=== PATIENT | female | born 1940 | race Caucasian/White ===

== ENCOUNTER → 2017-05-06 | Outpatient (CLI) | payer MEDICARE, OTHER ==
--- NOTE | 2017-05-06 16:07 | Diagnostic Imaging Report ---
INDICATION: Osteoporosis. Assess bone mineralization. COMPARISON: 05/28/2009. FINDINGS: Bone mineralization of the lumbar spine is 1.154. T-score is -0.4. Previously this was 1.083 and is improved by 6.6%. Left hip was measured at 1.141, the right hip 1.121. Previously bone mineralization was 1.051. This is improved by 7.6%. IMPRESSION: Normal DEXA scan. No osteoporosis or osteopenia detected. Dictated by: Dictated on workstation # [id number]
== END ==
LOC: RAD 10:45
PROVIDERS: ATTEND Internal Medicine
DX: M81.0 Age-related osteoporosis without current pathological fracture (principal)
CPT/HCPCS: 77080

== ENCOUNTER → 2017-11-05 | Outpatient (CLI) | payer MEDICARE, OTHER ==
[~2017-11-05] VITALS: Ht 165.1 cm; Wt 91.6 kg
[~2017-11-05] MED LIST: REGADENOSON 0.4 MG/5 ML SYR (LEXISCAN) IV ONE
[2017-11-05] MEDS: CATHETER FLUSH 10 ML SYR IV PRN ×2 (07:01→08:06)
[2017-11-05 08:05] VITALS: BP 171/78
--- NOTE | 2017-11-05 10:47 | Diagnostic Imaging Report ---
Clinical indication: Patient has dyspnea on exertion. Patient says it is worse when working outside. Exam: Chest x-ray and PA lateral views. Comparison: None. Findings: Lungs are clear. There is no pleural effusion or pneumothorax. Pulmonary vasculature and cardiac silhouettes within normal limits. There is slight elevation of the right hemidiaphragm. There are degenerative spurs seen throughout the thoracic spine. Surgical clips are seen overlying the right upper quadrant which could be related to cholecystectomy changes. Impression: 1: There is no radiographic evidence of acute cardiopulmonary process. 2: There is nonspecific mild elevation of the right hemidiaphragm. Dictated by: Dictated on workstation # [id number]
[2017-11-05 12:41] VITALS: BP 157/81
--- NOTE | 2017-11-05 12:41 | Cardiology Stress Test Report ---
Stress Test Report Type of NM Stress Test: Test Type: LEXISCAN 0.4MG/5ML Date of Procedure/Referring: Date of Procedure: Nov 05, 2017 PCP Rodo Finch DO Admitting Physician Rodo Finch DO Indications: Dyspnea, hypertension Baseline Heart Rate: 86 Baseline Blood Pressure: Blood Pressure Systolic: 157 Blood Pressure Diastolic: 81 Baseline EKG: Baseline EKG: sinus rhythm Summary & Conclusion: Summary: Please see Dr. Finch's note for the stress testing. 10.71 mCi of Myoview were given for rest imaging and 30.6 mCi of Myoview given for stress imaging. Transient ischemic dilatation score 1.04 , EF 71 percent. Normal wall motion. Normal myocardial perfusion imaging during rest and stress. Conclusion: Normal LV function with no wall motion abnormalities. Normal myocardial perfusion imaging during rest and stress. Copy Copies To 1: RODO FINCH M RIZWAN MD Nov 05, 2017 12:41
== END ==
LOC: CARD 06:34
PROVIDERS: ATTEND Internal Medicine
DX: I10 Essential (primary) hypertension (principal); R06.00 Dyspnea, unspecified
CPT/HCPCS: 71046; 78452; 93017

== ENCOUNTER → 2017-11-11 | Outpatient (CLI) | payer MEDICARE, OTHER | LOC: CARD 14:22 | PROVIDERS: ATTEND Internal Medicine | DX: R00.2 Palpitations (principal) | CPT/HCPCS: 93225; 93226 ==

== ENCOUNTER → 2019-03-15 | Outpatient (CLI) | payer MEDICARE, OTHER ==
[~2019-03-15] MED LIST changes: +HOLD METFORMIN - RECEIVED CONTRAST 20 ML VIAL IV SCH; +IOHEXOL 350 MG/ML 100 ML (OMNIPAQUE 350) VIAL IV ONE; +NS 100 ML (IVPB) BAG IV ONE; -REGADENOSON 0.4 MG/5 ML SYR (LEXISCAN) IV ONE
[2019-03-15 10:36] LABS: CREATININE SERUM 0.96 MG/DL (0.60-1.30)
--- NOTE | 2019-03-15 11:45 | Diagnostic Imaging Report ---
PROCEDURE: CT abdomen and pelvis with and without contrast. TECHNIQUE: Precontrast acquisitions were acquired through the abdomen and pelvis. Multiple contiguous axial images were obtained through the abdomen and pelvis after the administration of intravenous contrast. Auto Exposure Controls were utilized during the CT exam to meet ALARA standards for radiation dose reduction. INDICATION: Microhematuria. COMPARISON: Correlation is made with prior CT from 02/14/2016. FINDINGS: The lung bases are clear. Liver contains tiny low densities, too small to characterize. These have been present on prior CTs are most suggestive of cysts. Gallbladder is surgically absent. There is no biliary ductal dilatation. The pancreas and spleen are unremarkable. No adrenal mass is detected. Dominant cyst in the lower pole of the right kidney measures 5.9 cm AP compared with 5.2 cm on prior exam. No enhancing or nodular components are identified. The large cyst in the upper pole of the left kidney with some peripheral calcifications is again noted. This measures 9.8 cm AP compared with 9.0 cm on prior exam. This too remains primarily cystic without evidence of enhancing or nodular components. No renal calculi or hydronephrosis is seen. No definite ureteral or bladder calculi are identified. The aorta is non-aneurysmal. No definite bladder wall thickening or mass is seen. The uterus is unremarkable. The bowel loops are normal caliber. There is no obstruction. There is no free fluid or fluid collection. There is diverticulosis of the sigmoid but no evidence of acute diverticulitis. No definite abdominal or pelvic lymphadenopathy is seen. IMPRESSION: 1. There has been mild increase in size of cystic masses involving both kidneys when compared with exam dating back to 2016. No enhancing or nodular component to this cystic masses is identified. Remainder of the study is unremarkable apart from mild uncomplicated diverticulosis. Dictated by: Dictated on workstation # [id number]
--- NOTE | 2019-03-15 12:54 | Diagnostic Imaging Report ---
INDICATION: Microhematuria KUB Bowel gas pattern is normal. The gallbladder appears to be surgically absent. The second of 2 films shows some contrast in the renal collecting systems with no evidence of hydronephrosis. There is a questionable small diverticulum of the proximal left ureter. There are no radiopaque calculi. IMPRESSION: Questionable left ureteral diverticulum. Dictated by: Dictated on workstation # [id number]
[2019-03-17 10:51] LABS: CALCIUM 9.2 MG/DL (8.5-10.1); CREATININE SERUM 0.95 MG/DL (0.60-1.30); POTASSIUM 3.9 MMOL/L (3.6-5.0)
== END ==
LOC: RAD 09:49
PROVIDERS: ATTEND Urology
DX: N28.89 Other specified disorders of kidney and ureter (principal); I10 Essential (primary) hypertension; R31.29 Other microscopic hematuria; Z90.49 Acquired absence of other specified parts of digestive tract
CPT/HCPCS: 36415; 74019; 74178; 80048; 82565; 84520

== ENCOUNTER → 2020-12-13 | Outpatient (CLI) | payer MEDICARE, OTHER ==
[~2020-12-13] MED LIST changes: +CATHETER FLUSH 10 ML SYR IV PRN; -HOLD METFORMIN - RECEIVED CONTRAST 20 ML VIAL IV SCH; -IOHEXOL 350 MG/ML 100 ML (OMNIPAQUE 350) VIAL IV ONE; -NS 100 ML (IVPB) BAG IV ONE; +REGADENOSON 0.4 MG/5 ML SYR (LEXISCAN) IV ONE
[2020-12-13 07:58] VITALS: BP 169/66
--- NOTE | 2020-12-13 11:18 | Cardiology Stress Test Report ---
Stress Test Report Date of Procedure/Referring: Date of Procedure: Dec 13, 2020 PCP Rodo Finch DO Admitting Physician Rodo Finch DO Indications: HTN Baseline Vital Signs Vital Signs Date Time Temp Pulse Resp B/P (MAP) Pulse Ox O2 Delivery O2 Flow Rate FiO2 12/13/20 07:58 79 169/66 (100) Summary: Patient receive a resting and stress dose of Myoview, images were acquired and reviewed in the short axis view, horizontal long axis view and vertical long axis view. TID: 1.16 SSS: 1 SDS: 1 EF: 84 1. Patient had breast attenuation affecting the quality of the images, mild decrease uptake at the mid anterior wall with subtle reversibility probably due to breast attenuation. Overall there is no significant ischemia or infarction on SPECT images 2. Normal left ventricular size, EF 84% Copy Copies To 1: RODO FINCH BASHAR J MD Dec 13, 2020 11:18
== END ==
LOC: CARD 06:42
PROVIDERS: ATTEND Internal Medicine
DX: I10 Essential (primary) hypertension (principal); E11.9 Type 2 diabetes mellitus without complications; R53.83 Other fatigue; R32 Unspecified urinary incontinence
CPT/HCPCS: 78452; 93017; A9502

== ENCOUNTER → 2020-12-16 | Outpatient (CLI) | payer MEDICARE, OTHER | LOC: CARD 10:00 | PROVIDERS: ATTEND Internal Medicine | DX: I34.0 Nonrheumatic mitral (valve) insufficiency (principal); I10 Essential (primary) hypertension; E11.9 Type 2 diabetes mellitus without complications; R32 Unspecified urinary incontinence | CPT/HCPCS: 93306 ==

== ENCOUNTER → 2020-12-26 | Outpatient (CLI) | payer MEDICARE, OTHER ==
[~2020-12-26] MED LIST changes: -CATHETER FLUSH 10 ML SYR IV PRN; +CEFD300C3 PO; -REGADENOSON 0.4 MG/5 ML SYR (LEXISCAN) IV ONE
--- NOTE | 2020-12-26 16:32 | Diagnostic Imaging Report ---
PROCEDURE: CT abdomen and pelvis without contrast. TECHNIQUE: Multiple contiguous axial images were obtained through the abdomen and pelvis without the use of intravenous contrast. Auto Exposure Controls were utilized during the CT exam to meet ALARA standards for radiation dose reduction. INDICATION: Abdominal fullness. Comparison is made with prior chest from 03/15/2019. Imaging through lung bases show some atelectasis or infiltrate in the lingula and left lower lobe with a moderate left pleural effusion. No discrete liver mass is detected. Gallbladder surgically absent. No biliary ductal dilatation is seen. The pancreas and spleen are unremarkable. No adrenal mass is detected. Cystic masses involving bilateral kidneys are again noted. The cyst lower pole right kidney measures 5.6 cm compared with 5.9 cm. Large peripherally calcified cyst upper pole left kidney measures 8.9 cm compared with 9.8 cm. No calculi or hydronephrosis is seen. Aorta is nonaneurysmal. Bowel loops appear to be normal caliber. There is no obstruction. There is a small amount of perihepatic ascites. In addition, there is moderate amount of fluid in the pelvis. The fluid does have some patchy areas of increased density and questionable nodularity. None of this fluid was present on prior study from 2019. The bladder is unremarkable. Uterus is unremarkable. Bony structures are nonacute. IMPRESSION: 1. Development of a small to moderate left pleural effusion with left basilar infiltrate or atelectasis. 2. Stable bilateral renal cysts. 3. Development of abdominal and pelvic ascites. Ascites in the pelvis is associated with some areas of patchy increased density with some complexity to the fluid. Possibility of this representing a large complex cystic mass would be additional consideration such as an ovarian primary. Dedicated ultrasound would be recommended for further characterization. Dictated by: Dictated on workstation # [id number]
== END ==
LOC: RAD 13:45
PROVIDERS: ATTEND Internal Medicine
DX: K46.9 Unspecified abdominal hernia without obstruction or gangrene (principal); J90 Pleural effusion, not elsewhere classified; N28.1 Cyst of kidney, acquired; R18.8 Other ascites
CPT/HCPCS: 74176

== ENCOUNTER 2020-12-30 15:03 | Emergency (ER) | payer MEDICARE, OTHER ==
[~2020-12-30] VITALS: Ht 165.1 cm; Wt 92.9 kg
[2020-12-30 15:43] LABS: BASOPHILS # (AUTO) 0.1 10^3/uL (0.0-0.1); BASOPHILS % (AUTO) 1 % (0-10); EOSINOPHILS # (AUTO) 0.1 10^3/uL (0.0-0.3); EOSINOPHILS % (AUTO) 1 % (0-10); HEMATOCRIT 32 % (35-52); HEMOGLOBIN 10.5 g/dL (11.5-16.0); LYMPHOCYTES # (AUTO) 1.1 X 10^3 (1.0-4.0); LYMPHOCYTES % (AUTO) 9 % (12-44); MEAN CORPUSCULAR HEMOGLOBIN 29 pg (25-34); MEAN CORPUSCULAR HGB CONC 33 g/dL (32-36); MEAN CORPUSCULAR VOLUME 89 fL (80-99); MEAN PLATELET VOLUME 10.6 fL (9.0-12.2); MONOCYTES # (AUTO) 1.1 X 10^3 (0.0-1.0); MONOCYTES % (AUTO) 9 % (0-12); NEUTROPHILS # (AUTO) 9.6 X 10^3 (1.8-7.8); NEUTROPHILS % (AUTO) 80 % (42-75); PLATELET COUNT 359 10^3/uL (130-400)
--- NOTE | 2020-12-30 15:50 | ED Respiratory ---
General Chief Complaint: Respiratory Problems Stated Complaint: SOB/STOMACH SWOLLEN/NEG COVID TEST Nursing Triage Note: ongoing for 2 weeks shortness of breath. abdominal hernia increasing in size. friend Talita is with patient and patient gives permission to have information about her health. Source: patient, family Exam Limitations: no limitations History of Present Illness Date Seen by Provider: Dec 30, 2020 Time Seen by Provider: 15:00 Initial Comments Jessica is an 80-year-old female who presents to the emergency department today with a chief complaint of worsening shortness of breath over the last several weeks. She complains of increased abdominal swelling, distention and pressure. She is being worked up for the above-stated symptoms by her primary care physician and recently had echocardiogram as well as stress test and then subsequent CAT scan of the abdomen and pelvis. CAT scan identified an enlarging mass/cyst in the pelvis with suspicion of primary ovarian cancer. Patient denies any recent fevers, chills, productive cough. She is quite labored in her breathing. No discrete chest pain. No nausea, vomiting, diarrhea. No other GI or symptoms. She has never had a hysterectomy or oophorectomy. No abnormal vaginal bleeding. Patient finds most comfortable lying on her left side. All other review of systems reviewed and negative except as stated. Timing/Duration: getting worse Severity: moderate Modifying Factors: Worse With Activity; Improves With Lying Down (left side) Associated Symptoms: shortness of breath Allergies and Home Medications Allergies Coded Allergies: Penicillins (Verified Allergy, Intermediate, Hives, 12/13/20) Patient Home Medication List Home Medication List Reviewed: Yes Cefdinir (Cefdinir) 300 Mg Capsule, 300 MG PO BID Prescribed by: ROBBIE REID on 12/30/201739 Review of Systems Review of Systems Constitutional: see HPI EENTM: no symptoms reported Respiratory: dyspnea on exertion, short of breath Cardiovascular: no symptoms reported Gastrointestinal: abdominal pain, loss of appetite Genitourinary: no symptoms reported Musculoskeletal: no symptoms reported Skin: no symptoms reported All Other Systems Reviewed Negative Unless Noted: Yes Past Weywkmq-Jvlwju-Znaipy Hx Patient Social History Tobacco Use?: No Use of E-Cig and/or Vaping dev: No Substance use?: No Alcohol Use?: No Pt feels they are or have been: No Immunizations Up To Date Influenza Vaccine Up-to-Date: No; Not Current First/Initial COVID19 Vaccinat: jN 2020 Second COVID19 Vaccination Antonio: APR 2020 COVID19 Vaccine Ladle Repairer: RIKIRadha Physical Exam Vital Signs - First Documented 12/30/20 12/30/20 15:12 17:45 Temp 36.7 Pulse 91 Resp 22 B/P (MAP) 144/63 (90) Pulse Ox 95 O2 Delivery Room Air Capillary Refill : Less Than 3 Seconds Height: 5'5.00" Weight: 202lbs. 0.0oz. 91.011851rw; 34.00 BMI Method: General Appearance: WD/WN, no apparent distress HEENT: PERRL/EOMI Neck: full range of motion Respiratory: no respiratory distress, no accessory muscle use, wheezing (occasional scattered coarse wheeze left side) Cardiovascular: regular rate, rhythm Gastrointestinal: abnormal bowel sounds (hypoactive), other (distended, somewhat firm and tender; discrete mass palpable in the midline and to the left of center lower abdomen) Extremities: normal range of motion, non-tender, normal inspection, no pedal edema Neurologic/Psychiatric: alert, normal mood/affect, oriented x 3 Skin: normal color, warm/dry Progress/Results/Core Measures Suspected Sepsis SIRS Temperature: Pulse: 91 Respiratory Rate: 22 Laboratory Tests 12/30/20 15:30: White Blood Count 12.0H Blood Pressure 144 /63 Mean: 90 Laboratory Tests 12/30/20 11:53: INR Comment 1.1 12/30/20 15:30: Creatinine 1.40H, Platelet Count 359, Total Bilirubin 0.4 Results/Orders Lab Results Laboratory Tests Test 12/30/20 11:53 12/30/20 15:30 Range/Units Prothrombin Time 15.0 H 12.2-14.7 SEC INR Comment 1.1 0.8-1.4 Activated Partial Thromboplast Time 39 H 24-35 SEC White Blood Count 12.0 H 4.3-11.0 10^3/uL Red Blood Count 3.59 L 3.80-5.11 10^6/uL Hemoglobin 10.5 L 11.5-16.0 g/dL Hematocrit 32 L 35-52 % Mean Corpuscular Volume 89 80-99 fL Mean Corpuscular Hemoglobin 29 25-34 pg Mean Corpuscular Hemoglobin Concent 33 32-36 g/dL Red Cell Distribution Width 13.3 10.0-14.5 % Platelet Count 359 130-400 10^3/uL Mean Platelet Volume 10.6 9.0-12.2 fL Immature Granulocyte % (Auto) 0 % Neutrophils (%) (Auto) 80 H 42-75 % Lymphocytes (%) (Auto) 9 L 12-44 % Monocytes (%) (Auto) 9 0-12 % Eosinophils (%) (Auto) 1 0-10 % Basophils (%) (Auto) 1 0-10 % Neutrophils # (Auto) 9.6 H 1.8-7.8 X 10^3 Lymphocytes # (Auto) 1.1 1.0-4.0 X 10^3 Monocytes # (Auto) 1.1 H 0.0-1.0 X 10^3 Eosinophils # (Auto) 0.1 0.0-0.3 10^3/uL Basophils # (Auto) 0.1 0.0-0.1 10^3/uL Immature Granulocyte # (Auto) 0.1 0.0-0.1 10^3/uL Sodium Level 136 135-145 MMOL/L Potassium Level 3.6 3.6-5.0 MMOL/L Chloride Level 104 98-107 MMOL/L Carbon Dioxide Level 21 21-32 MMOL/L Anion Gap 11 5-14 MMOL/L Blood Urea Nitrogen 30 H 7-18 MG/DL Creatinine 1.40 H 0.60-1.30 MG/DL Estimat Glomerular Filtration Rate 36 BUN/Creatinine Ratio 21 Glucose Level 114 H 70-105 MG/DL Calcium Level 9.0 8.5-10.1 MG/DL Corrected Calcium 9.4 8.5-10.1 MG/DL Total Bilirubin 0.4 0.1-1.0 MG/DL Aspartate Amino Transf (AST/SGOT) 24 5-34 U/L Alanine Aminotransferase (ALT/SGPT) 17 0-55 U/L Alkaline Phosphatase 57 40-136 U/L Total Protein 6.7 6.4-8.2 GM/DL Albumin 3.5 3.2-4.5 GM/DL CA 125 Antigen 469.1 H 0.0-35.0 U/mL My Orders Orders - ROBBIE REID MD Cbc With Automated Diff (12/30/20 15:34) Comprehensive Metabolic Panel (12/30/20 15:34) Chest 1 View, Ap/Pa Only (12/30/20 15:34) Ed Iv/Invasive Line Start (12/30/20 15:34) Protime With Inr (12/30/20 15:47) Partial Thromboplastin Time (12/30/20 15:47) Cytology Requistion | Nursing (12/30/20 16:42) Ca 125 (12/30/20 16:51) Us Abdomen Limited [id number] (12/30/20 ) Cefdinir Capsule (Omnicef Capsule) (12/30/20 17:45) Vital Signs/I&O 12/30/20 12/30/20 15:12 17:45 Temp 36.7 Pulse 91 88 Resp 22 20 B/P (MAP) 144/63 (90) 144/60 Pulse Ox 95 94 O2 Delivery Room Air Capillary Refill : Less Than 3 Seconds Blood Pressure Mean: 90 Progress Note : Time: 17:[address] Aguero at the bedside to evaluate for ascites and paracentesis. U/s also at the bedside. unable to find a pocket of fluid large enough to be comfortable with a paracentesis. limited abdominal ultrasound performed. lasrge 18cm mass visualized in the abdomen with complex small pockets of fluid noted. 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 will have the patient call his office for follow up tomorrow. will send the pictures to sajan of the limited abdominal ultrasound. patient has left sided atelectasis/effusion as well, slightly increased WBC's. will go ahead and put her on a course of antibiotics to treat for any possible community acquired pneumonia. long discussion with patient and her friend at the bedside. Close follow up with Dr Finch. Diagnostic Imaging Diagonstic Imaging: Xray Plain Films/CT/US/NM/MRI: chest Comments [facility]. [place], [place] NAME: JESSICA REDDY [facility] REC#: [id number] PT STATUS: REG ER : 1940 PHYSICIAN: ROBBIE REID MD ADMIT DATE: 12/30/20/ER Draft Date of Exam:12/30/20 CHEST 1 VIEW, AP/PA ONLY INDICATION: Dyspnea Frontal chest obtained at 4:06 hours p.m. and compared to 11/05/2017. There is cardiomegaly. There is extensive infiltrate in the left lung base with left pleural effusion. Right lung is clear. There is no pneumothorax. IMPRESSION: Extensive left basilar infiltrate and/or atelectasis with left pleural effusion. This is a new finding compared 11/05/2017. Dictated on workstation # [id number] Dict: 12/30/20 1637 Trans: 12/30/20 1639 CV [id number] Interpreted by: EDDA GILES MD Electronically signed by: ZENIA VIA [place], [place] NAME: JESSICA REDDY [facility] REC#: [id number] PT STATUS: REG ER : 1940 PHYSICIAN: ROBBIE REID MD ADMIT DATE: 12/30/20/ER Signed Date of Exam:12/30/20 US ABDOMEN LIMITED [id number] PROCEDURE: US Abdomen, limited. TECHNIQUE: Multiple realtime grayscale images were obtained over the abdomen in various projections. INDICATION: Abdominal distention Survey of the abdomen does not demonstrate any ascites. There is a 17 x 16 x 11 cm mass in the mid pelvis. This has internal vascularity. IMPRESSION: Large pelvic mass. This is unchanged compared to CT dated 12/26/2020. There is no ascites seen. Dictated by: Dictated on workstation # [id number] Dict: 12/30/20 1710 Trans: 12/30/20 1720 [facility] [id number] Interpreted by: VINICIO BENSON MD Electronically signed by: VINICIO BENSON MD 12/30/20 172 Departure Communication (Admissions) Time/Spoke to Consulting Phy: 15:[address] aguero Impression Primary Impression: Dyspnea Qualified Codes: R06.02 - Shortness of breath Additional Impressions: Ascites Qualified Codes: R18.8 - Other ascites Ovarian mass Disposition: 01 HOME, SELF-CARE Condition: Stable Departure-Patient Inst. Decision time for Depature: 17:17 Referrals: RODO FINCH DO (PCP/Family) Primary Care Physician Patient Instructions: Abdominal Pain, Adult ED, Shortness of Breath, Adult ED Add. Discharge Instructions: continue your daily medications as prescribed. Please call and follow up tomorrow with Dr Wilkinson. Call first thing in the morning. I have sent the images of your ultrasound to [facility] so that Dr Wilkinson can look at them. I have put you on some antibiotics for the fluid in your left lung for the next week - Cefdinir 300mg twice a day for 7 days. Please come back to the emergency department if you have any increased shortness of breath, high fevers, pains or any other concerns. Scripts Cefdinir (Cefdinir) 300 Mg Capsule 300 MG PO BID, #14 CAP 0 Refills Prov: ROBBIE REID MD 12/30/20 Copy Copies To 1: RODO FINCH KATHRYN M MD Dec 30, 2020 15:50
[2020-12-30 16:00] LABS: ALBUMIN 3.5 GM/DL (3.2-4.5); POTASSIUM 3.6 MMOL/L (3.6-5.0)
[2020-12-30 16:02] LABS: TOTAL PROTEIN 6.7 GM/DL (6.4-8.2)
[2020-12-30 16:04] LABS: BILIRUBIN,TOTAL 0.4 MG/DL (0.1-1.0)
[2020-12-30 16:06] LABS: CREATININE SERUM 1.4 MG/DL (0.60-1.30)
[2020-12-30 16:08] LABS: INR 1.1 (0.8-1.4)
--- NOTE | 2020-12-30 16:39 | Diagnostic Imaging Report ---
INDICATION: Dyspnea Frontal chest obtained at 4:06 hours p.m. and compared to 11/05/2017. There is cardiomegaly. There is extensive infiltrate in the left lung base with left pleural effusion. Right lung is clear. There is no pneumothorax. IMPRESSION: Extensive left basilar infiltrate and/or atelectasis with left pleural effusion. This is a new finding compared 11/05/2017. Dictated by: Dictated on workstation # [id number]
--- NOTE | 2020-12-30 16:49 | Consultation - Surgery ---
VIC MARTE 12/30/20 1648: History of Present Illness History of Present Illness Patient Consulted On(jeniffer/time) 12/30/20 16:40 Time Seen by Provider: 16:20 History of Present Illness CC: SOB with abdominal pain HPI: 80 yo F present to the ER with SOB that started a few weeks ago along with LLQ and LRQ burning abdominal pain /10 that comes and goes, she denies any recent procedures, COVID illness, or fevers. She favors laying on her side which lessens her symptoms as well as using head pads, any movement or going into the supine position makes her symptoms worse. She has been coughing but does not report any sputum She currently takes baby aspirin. She usually has one bowel movement a day, but reports that she had two small bowel movements over the last one week indicating signs of constipation that has not improved with stool softener use. ROS: No N/V, headache, dizziness, CP, sore throat, bloody stools, or diarrhea. She reports decreased appetite and is thirsty. Allergies and Home Medications Allergies Coded Allergies: Penicillins (Verified Allergy, Intermediate, Hives, 12/13/20) Patient Home Medication List Cefdinir (Cefdinir) 300 Mg Capsule, 300 MG PO BID Prescribed by: ROBBIE REID on 12/30/20 1740 Past Bxdtmbj-Ddzhgr-Ymilox Hx Patient Social History Alcohol Use?: No Have you traveled recently?: No Physical Exam-General Problems Physical Exam Vital Signs Vital Signs - First Documented 12/30/20 15:12 Temp 36.7 Pulse 91 Resp 22 B/P (MAP) 144/63 (90) Pulse Ox 95 Capillary Refill : Less Than 3 Seconds General Appearance: moderate distress Respiratory: crackles, wheezing, expiration, inspiration, other (no wheezing in lateral recombant postion, wheezing in supine position ) Gastrointestinal: other (crackles most prominent in LLQ and RLQ) Data Review Labs Laboratory Tests 12/30/20 11:53: Prothrombin Time 15.0H, INR Comment 1.1, Activated Partial Thromboplast Time 39H 12/30/20 15:30: White Blood Count 12.0H, Red Blood Count 3.59L, Hemoglobin 10.5L, Hematocrit 32L , Mean Corpuscular Volume 89, Mean Corpuscular Hemoglobin 29, Mean Corpuscular Hemoglobin Concent 33, Red Cell Distribution Width 13.3, Platelet Count 359, Mean Platelet Volume 10.6, Immature Granulocyte % (Auto) 0, Neutrophils (%) (Auto) 80H, Lymphocytes (%) (Auto) 9L, Monocytes (%) (Auto) 9, Eosinophils (%) (Auto) 1, Basophils (%) (Auto) 1, Neutrophils # (Auto) 9.6H, Lymphocytes # (Auto) 1.1, Monocytes # (Auto) 1.1H, Eosinophils # (Auto) 0.1, Basophils # (Auto) 0.1, Immature Granulocyte # (Auto) 0.1, Sodium Level 136, Potassium Level 3.6, Chloride Level 104, Carbon Dioxide Level 21, Anion Gap 11, Blood Urea Nitrogen 30H, Creatinine 1.40H, Estimat Glomerular Filtration Rate 36, BUN/Creatinine Ratio 21, Glucose Level 114H, Calcium Level 9.0, Corrected Calcium 9.4, Total Bilirubin 0.4, Aspartate Amino Transf (AST/SGOT) 24, Alanine Aminotransferase (ALT/SGPT) 17, Alkaline Phosphatase 57, Total Protein 6.7, Albumin 3.5 Assessment/Plan Assessment/Plan Assessment/Plan Assessment: Ascites Right ovarian mass SOB LLQ and RLQ pain Constipation Cough Plan: U/S performed on abdomen did on reveal enough fluid to do a paracentesis follow up with [employer] LINDA ROBISON DO 12/30/20 2017: History of Present Illness History of Present Illness Date Seen by Provider: Dec 30, 2020 History of Present Illness Consult requested by Dr. Reid for abdominal ascites pelvic mass. Seen and evaluated in emergency department. Patient is a 80-year-old female who presented to the emergency department with increasing shortness of breath. Patient states that a few weeks ago she started having a little bit of abdominal discomfort in the lower abdomen which was a burning type pain that comes and goes which was about a 4 out of 10. Over the last couple weeks she has noticed her abdomen continued to increase in size. She states that the shortness of breath is continued to worsen over the last few days and she could not get her breath. Laying in certain positions does make it better like laying on the left side. Laying on her back makes it worse. She does not have any cough. Her abdomen has become more and more rounded she states. She had a CT scan on 12/26/2020 which was ordered by Dr. Valencia which demonstrated a pelvic mass that is cystic in nature with some abdominal and pelvic ascites this is favored to be a primary ovarian cancer. Patient with no fever sweats chills shortness of breath or chest pain at this time. Allergies and Home Medications Allergies Coded Allergies: Penicillins (Verified Allergy, Intermediate, Hives, 12/13/20) Patient Home Medication List Home Medication List Reviewed: Yes Cefdinir (Cefdinir) 300 Mg Capsule, 300 MG PO BID Prescribed by: ROBBIE REID on 12/30/20 1740 Past Wttzesb-Qtswtz-Htvvfy Hx Patient Social History Smoking Status: Never a Smoker Alcohol Use?: No Surgeries Surgeries: Gallbladder Respiratory History of Respiratory Disorde: No Cardiovascular History of Cardiac Disorders: No Neurological History of Neurological Disord: No Reviewed Nursing Assessment Reviewed/Agree w Nursing PMH: Yes Family Medical History Significant Family History: Cancer, Diabetes Review of Systems-General Constitutional: No chills, No diaphoresis, No fever, No weakness EENTM: No blurred vision, No double vision Respiratory: cough, dyspnea on exertion, short of breath Cardiovascular: No chest pain, No palpitations Gastrointestinal: abdominal pain; No nausea, No vomiting Genitourinary: No decreased output, No discharge Musculoskeletal: No back pain, No joint pain Skin: No change in color, No change in hair/nails Psychiatric/Neurological: Denies Anxiety, Denies Depressed, Denies Emotional Problems All Other Systems Reviewed Negative Unless Noted: Yes (Negative excepted noted.) Physical Exam-General Problems Physical Exam General Appearance: mild distress HEENT: PERRL/EOMI, normal ENT inspection Neck: non-tender, supple, normal inspection Respiratory: chest non-tender, wheezing Cardiovascular: regular rate, rhythm, no JVD Gastrointestinal: distended, tenderness (Lower abdomen), other Back: no CVA tenderness, no vertebral tenderness Extremities: non-tender, normal inspection Neurologic/Psychiatric: alert, normal mood/affect, oriented x 3 Skin: normal color, warm/dry Lymphatic: no adenopathy Assessment/Plan Assessment/Plan Assessment/Plan Ascites Right ovarian mass/pelvic mass cystic SOB LLQ and RLQ pain Constipation Cough Patient had ultrasound at bedside performed which did not demonstrate any drainable fluid collection of ascites. So therefore did not perform paracentesis. Patient does have a cystic appearing pelvic mass on ultrasound as well which at this time this is likely a primary ovarian carcinoma. She has follow-up already arranged with gynecology which she will see. Patient and family understand need for follow-up and further work-up. Supervisory-Addendum Brief Verification & Attestation Participated in pt care: history, MDM, physical Personally performed: exam, history, MDM, supervision of care Care discussed with: Medical Student Procedures: n/a Results interpretation: Verified all documentation Verification and Attestation of Medical Student E/M Service A medical student performed and documented this service in my presence. I reviewed and verified all information documented by the medical student and made modifications to such information, when appropriate. I personally performed the physical exam and medical decision making. Linda Robison, Dec 30, 2020,20:20 VIC MARTE Dec 30, 2020 16:48 LINDA ROBISON DO Dec 30, 2020 20:17
--- NOTE | 2020-12-30 17:14 | Diagnostic Imaging Report ---
PROCEDURE: US Abdomen, limited. TECHNIQUE: Multiple realtime grayscale images were obtained over the abdomen in various projections. INDICATION: Abdominal distention Survey of the abdomen does not demonstrate any ascites. There is a 17 x 16 x 11 cm mass in the mid pelvis. This has internal vascularity. IMPRESSION: Large pelvic mass. This is unchanged compared to CT dated 12/26/2020. There is no ascites seen. Dictated by: Dictated on workstation # [id number]
[2020-12-30] MEDS ORDERED: CEFD300C3 PO (17:40)
[2020-12-30 17:45] VITALS: BP 144/60
[2020-12-30] MEDS ORDERED: CEFDINIR 300 MG (OMNICEF) CAP PO ONE (17:45)
== END 2020-12-30 17:55 | disposition home or self-care (01) ==
LOC: EDUNIT# 15:03 → ER 15:05
DX: R06.00 Dyspnea, unspecified (principal); R18.8 Other ascites; N83.8 Other noninflammatory disorders of ovary, fallopian tube and broad ligament
CPT/HCPCS: 36415; 71045; 76705; 80053; 85025; 85610; 85730; 86304